=== PATIENT | male | born 1985 | race Caucasian/White ===

== ENCOUNTER 2018-10-04 08:29 | Emergency (ER) | payer BC ==
[~2018-10-04] VITALS: Ht 177.8 cm; Wt 81.6 kg
[2018-10-04] MEDS ORDERED: TYLENOL325 M1 PO (08:46)
[2018-10-04] MEDS ORDERED: PENICILLIN-VK500 MG PO (08:46)
[2018-10-04] MEDS ORDERED: NAPROSYN500 MG PO (08:46)
== END 2018-10-04 09:09 | disposition home or self-care (01) ==
LOC: ED 08:29
DX: K02.9 Dental caries, unspecified (principal); F17.210 Nicotine dependence, cigarettes, uncomplicated